=== PATIENT | male | born 1995 | race Caucasian/White ===

== ENCOUNTER 2018-03-06 14:34 | Emergency (ER) | payer OTHER ==
[~2018-03-06 14:34] MED LIST: ZITH250T PO
[2018-03-06 14:37] VITALS: BP 114/79; PULSE 97; RESP 16; TEMP 98.4; O2SAT 97
--- NOTE | 2018-03-06 15:41 | PD ---
HPI Chief Complaint: Complaint Time Seen by Provider: 15:13 Travel History International Travel<30 days: No Contact w/Intl Traveler<30days: No Traveled to known affect area: No History of Present Illness HPI 22-year-old male presents emerged from with uncomfortable fullness in his left testicle starting past couple days. No significant pain. No dysuria or urinary symptoms. No tenderness of the testicle. No other complaints. History Past Medical History Medical History: Denies Significant Hx Social History Alcohol Use: No Tobacco Use: No Allergies-Medications (Allergen,Severity, Reaction): Coded Allergies: No Known Allergies (Unverified Adverse Reaction, Unknown, 03/06/18) Reported Meds & Prescriptions Reported Meds & Active Scripts Active No Active Prescriptions or Reported Medications Review of Systems Except as stated in HPI: all other systems reviewed are Neg Physical Exam Narrative GENERAL: Well-appearing 22-year-old man, no acute distress per SKIN: Warm and dry. CARDIOVASCULAR: Warm and well perfused. RESPIRATORY: Normal rate and effort. : Normal external male genitalia. Circumcised. Normal lie of both testicles. The left epididymis is full with a characteristic "bag of worms" feel. There is no testicular tenderness swelling masses or other abnormality. NEUROLOGICAL: Awake and alert. No gross deficits. Data Data Last Documented VS Vital Signs Date Time Temp Pulse Resp B/P (MAP) Pulse Ox O2 Delivery O2 Flow Rate FiO2 03/06/18 14:37 98.4 97 16 114/79 (91) 97 MDM Medical Decision Making Medical Screen Exam Complete: Yes Emergency Medical Condition: Yes Differential Diagnosis Varicocele, hydrocele, epididymitis, malignancy, other Narrative Course Medical decision making 22-year-old male presents emerged from with epididymal fullness. Is likely varicocele. Patient looks well. No evidence of infection. Doubt malignancy. Recommend outpatient follow-up if symptoms persist. Diagnosis Primary Impression: Left varicocele Additional Instructions: Follow-up with your primary doctor if symptoms persist. You can try more supportive clothing like briefs or boxer briefs. Return to the emergency department for any worsening pain swelling tenderness or other abnormality. Med/Other Pt SpecificInfo: No Change to Meds Scripts No Active Prescriptions or Reported Meds Disposition: 01 DISCHARGE HOME Condition: Stable Kamaljit Mcdermott MD March 06, 2018 15:41
== END 2018-03-06 15:50 | disposition home or self-care (01) ==
LOC: NEPD 14:34
DX: I86.1 Scrotal varices (principal)
CPT/HCPCS: 99282